=== PATIENT | female | born 1945 | race Caucasian/White ===

== ENCOUNTER 2021-02-24 08:53 | Outpatient (CLI) | payer MEDICARE, BC | END 2021-02-24 08:54 | disposition home or self-care (01) | LOC: SCSMRI 08:53 | PROVIDERS: ATTEND Anesthesiology Pain Medicine | DX: M51.16 Intervertebral disc disorders with radiculopathy, lumbar region (principal); M48.061 Spinal stenosis, lumbar region without neurogenic claudication; M43.16 Spondylolisthesis, lumbar region; M47.26 Other spondylosis with radiculopathy, lumbar region; M43.17 Spondylolisthesis, lumbosacral region; Z98.890 Other specified postprocedural states | CPT/HCPCS: 72148 ==